=== PATIENT | female | born 1995 | race Caucasian/White ===

== ENCOUNTER 2020-05-25 11:26 | Emergency (ER) | payer OTHER ==
[~2020-05-25] VITALS: Ht 160 cm; Wt 57.2 kg
[~2020-05-25 11:26] MED LIST: AMPICILLIN TRI500 MG PO; CITRANATAL B-C1 EAC1
== END 2020-05-25 16:22 | disposition home or self-care (01) ==
LOC: ER 11:26
DX: O20.0 Threatened abortion (principal); Z3A.08 8 weeks gestation of pregnancy; Z03.818 Encounter for observation for suspected exposure to other biological agents ruled out

== ENCOUNTER → 2020-09-03 | Outpatient (CLI) | payer OTHER | END | disposition home or self-care (01) | LOC: PRENATAL 14:16 | PROVIDERS: ATTEND Obstetrics & Gynecology Maternal & Fetal Medicine | DX: O35.0XX1 Maternal care for (suspected) central nervous system malformation in fetus, fetus 1 (principal); O35.3XX1 Maternal care for (suspected) damage to fetus from viral disease in mother, fetus 1; O98.512 Other viral diseases complicating pregnancy, second trimester; Z36.89 Encounter for other specified antenatal screening; Z3A.22 22 weeks gestation of pregnancy ==

== ENCOUNTER 2020-12-21 09:25 | Outpatient (CLI) | payer OTHER | END 2020-12-21 10:40 | disposition home or self-care (01) | LOC: NST 09:25 → OBS/DEL 09:25 | PROVIDERS: ATTEND Obstetrics & Gynecology | DX: O46.8X3 Other antepartum hemorrhage, third trimester (principal); Z3A.37 37 weeks gestation of pregnancy ==

== ENCOUNTER 2020-12-30 15:10 | Inpatient (IN) | payer OTHER ==
[~2020-12-30] VITALS: Ht 157.5 cm; Wt 63.5 kg
== END 2021-01-01 16:27 | disposition home or self-care (01) | DRG 798 ==
LOC: OBS/DEL 15:10 → OB/GYN 16:37 → LDR 16:37 → OB/GYN 23:36
PROVIDERS: ADMIT Obstetrics & Gynecology; ATTEND Obstetrics & Gynecology
PROC: 10E0XZZ Delivery of Products of Conception, External Approach (ICD-10-PCS; principal; 2020-12-30)
PROC: 10907ZC Drainage of Amniotic Fluid, Therapeutic from Products of Conception, Via Natural or Artificial Opening (ICD-10-PCS; 2020-12-30)
PROC: 4A1HXFZ Monitoring of Products of Conception, Cardiac Rhythm, External Approach (ICD-10-PCS; 2020-12-30)
PROC: 0UB70ZZ Excision of Bilateral Fallopian Tubes, Open Approach (ICD-10-PCS; 2020-12-31)
DX: O80 Encounter for full-term uncomplicated delivery (principal); Z30.2 Encounter for sterilization; Z37.0 Single live birth; Z3A.38 38 weeks gestation of pregnancy